=== PATIENT | female | born 1945 | race Caucasian/White ===

== ENCOUNTER 2019-12-08 06:02 | Day surgery (SDC) | payer MEDICARE, BC ==
[2019-12-08] MEDS ORDERED: Lactated Ringers 1,000 ML IV SCH (06:30)
[2019-12-08] MEDS ORDERED: Povidone-Iodine 10% Soln 118.25 ML Bottle ONE ×2 (06:36→08:22)
[2019-12-08] MEDS: Nozin Nasal Sanitizer NASBOTH SCH ×2 (07:01→20:11)
[2019-12-08] MEDS ORDERED: Propofol 200 MG/20 ML SDV ONE (07:24)
[2019-12-08] MEDS ORDERED: fentaNYL 100 MCG/2 ML SDV ONE (07:24)
[2019-12-08] MEDS ORDERED: Midazolam 1 MG/ML 2 ML SDV ONE (07:25)
[2019-12-08] MEDS ORDERED: Sodium Chloride 0.9% 10 ML ONE (08:08)
[2019-12-08] MEDS: ceFAZolin 2 GM in Premix Bag 1 BAG IV ONE ×2 (08:28→14:25)
[2019-12-08] MEDS ORDERED: Lactated Ringers 1,000 ML ONE (08:38)
[2019-12-08] MEDS ORDERED: Morphine 2 MG/ML SYRINGE IVPUSH PRN (09:04)
[2019-12-08] MEDS ORDERED: Ondansetron 4 MG/2 ML SDV IVPUSH PRN (09:04)
[2019-12-08] MEDS ORDERED: Acetaminophen 325 MG Tab PO PRN (09:04)
[2019-12-08] MEDS ORDERED: ceFAZolin 1 GM in Sodium Chloride 0.9% 50 ML IV SCH (09:15)
[2019-12-08] MEDS: Sodium Chloride 0.9% 1,000 ML IV SCH ×2 (10:35→19:03)
--- NOTE | 2019-12-08 11:29 | CR ---
Knee 1V or 2V Lt CLINICAL HISTORY: Arthroplasty FINDINGS: Patient is status post medial hemiarthroplasty. Components appear well seated. There is intra-articular and subcutaneous venous air. IMPRESSION: Status post recent medial hemiarthroplasty
[2019-12-08] MEDS: Acetaminophen/oxyCODONE 325-5 MG Tab PO PRN ×2 (11:30→16:39)
[2019-12-08] MEDS: Ketorolac 30 MG/ML SDV IVPUSH SCH ×2 (12:36→20:09)
[2019-12-08] MEDS: Acetaminophen/HYDROcodone 325-5 MG Tab PO PRN (14:34)
[2019-12-08] MEDS ORDERED: Levothyroxine 112 MCG Tab PO ONE (15:00)
[2019-12-08] MEDS: ceFAZolin 1 GM in Premix Bag 1 BAG IV SCH (16:40)
[2019-12-08] MEDS ORDERED: Pantoprazole 40 MG Tab.CR PO ONE (17:00)
[2019-12-08] MEDS: Docusate Sodium 100 MG Cap PO SCH (20:11)
[2019-12-09] MEDS: ceFAZolin 1 GM in Premix Bag 1 BAG IV SCH (00:27)
[2019-12-09] MEDS: Sodium Chloride 0.9% 1,000 ML IV SCH (03:15)
[2019-12-09] MEDS: Acetaminophen/HYDROcodone 325-5 MG Tab PO PRN ×2 (03:16→08:24)
[2019-12-09] MEDS: Ketorolac 30 MG/ML SDV IVPUSH SCH ×2 (03:51→11:27)
[2019-12-09] MEDS ORDERED: Levothyroxine 50 MCG Tab PO SCH (07:30)
[2019-12-09] MEDS ORDERED: Pantoprazole 40 MG Tab.CR PO SCH (07:30)
[2019-12-09] MEDS: Nozin Nasal Sanitizer NASBOTH SCH (08:30)
[2019-12-09] MEDS: Docusate Sodium 100 MG Cap PO SCH (08:31)
[2019-12-09] MEDS ORDERED: Cetirizine 10 MG Tab PO SCH (09:00)
[2019-12-09] MEDS ORDERED: Non-Formulary Medication 1 Each (Rosuvastatin [Crestor] 20 MG) PO SCH (09:00)
[2019-12-09] MEDS ORDERED: Rosuvastatin 10 MG Tab PO SCH (09:00)
[2019-12-09] MEDS ORDERED: Non-Formulary Medication 1 Each (Omeprazole [Omeprazole] 40 MG) PO SCH (09:00)
[2019-12-10] MEDS ORDERED: Levothyroxine 112 MCG Tab PO SCH (07:30)
--- NOTE | 2019-12-22 17:44 | OR ---
DATE OF PROCEDURE: 12/08/2019 SURGEON: Alan Rivera MD PREOPERATIVE DIAGNOSIS: Osteoarthritis, left knee. POSTOPERATIVE DIAGNOSIS: Osteoarthritis, left knee. PROCEDURE: Left medial unicompartmental arthroplasty using [employer] ZUK components, size C femur, 1 tibia, and 8 mm polyethylene. ANESTHESIA: Spinal with sedation. INDICATIONS: Corazon is a very pleasant 73-year-old female with a history of progressive pain in her left knee. Examination and imaging are consistent with osteoarthritis of the left knee with medial joint space collapse. She now presents for left medial unicompartmental arthroplasty. Risks, benefits, potential complications of the procedure were discussed. DESCRIPTION OF PROCEDURE: After adequate anesthesia was obtained, the patient placed supine with a tourniquet about the left upper thigh. Left leg was prepped and draped in a sterile fashion. Leg was exsanguinated and tourniquet inflated to 300 mmHg pressure. Incision was made just medial of midline over the patella and carried down through the subcutaneous tissues just below the joint line. Medial parapatellar arthrotomy was performed up to the level of the VMO insertion. The anterior horn of the medial meniscus was excised. The joint was evaluated with articular cartilage loss in the medial femoral condyle. Articular cartilage of the trochlear groove was intact and very minimal softening of the articular cartilage of the patella was noted with no defects. The anterior lip of the tibial plateau was removed with an oscillating saw. The leg was placed in extension and the extramedullary alignment jig was then placed. This was aligned and secured. Distal femur was then cut with an oscillating saw. This portion of the guide was removed and the knee was flexed. The proximal tibia was resected with a combination of reciprocating and oscillating saws. The guide was removed. Proximal tibia was excised along with the remaining medial meniscus. The femur was then sized to a C component. C cutting jig was secured to the distal femur. Peg holes were drilled and the remaining cuts were then completed. The jig was removed. The tibia was then sized to a #1 Component. #1 trial base plate was tapped into position, secured with a pin, and peg holes were drilled. The trial femur was placed and an 8 mm insert was then trialed which provided 2 mm of play in both flexion and extension. The trials were then removed. The knee was thoroughly irrigated with the pulse lavage. The bone surfaces were dried. Components were cemented in place and excess cement was removed. The knee was held in full extension with an 8 mm trial as the cement cured. Flexion and extension gaps were again measured with approximately 2 mm in both. The 8 trial was removed. The knee was irrigated and the final polyethylene was snapped into position. The knee was irrigated once again with a dilute Betadine solution followed by normal saline. The arthrotomy was then closed with #2 Ethibond in a running fashion. The skin was closed with 2-0 Vicryl and a running 3-0 Monocryl on the skin. Steri-Strips were applied. Light compressive dressing was then placed. The patient tolerated procedure well and no complications. Taken from the operating room in stable condition. Alan Rivera MD /[id number]
== END 2019-12-09 14:10 | disposition home or self-care (01) ==
LOC: JP.SDS 06:02 → JP.MS 10:10 → JP.SDS 12-09 14:10
PROVIDERS: ATTEND Specialist
DX: M17.12 Unilateral primary osteoarthritis, left knee (principal); J44.9 Chronic obstructive pulmonary disease, unspecified; E03.9 Hypothyroidism, unspecified; E11.9 Type 2 diabetes mellitus without complications; M81.0 Age-related osteoporosis without current pathological fracture; Z88.2 Allergy status to sulfonamides; Z88.0 Allergy status to penicillin
CPT/HCPCS: 27446; 73560; 97110; 97116; 97161; 97530; 97535; A9270; C1713; C1776; J0690; J1885; J2250; J2405; J2704; J3010; J7030; J7120

== ENCOUNTER 2021-09-11 08:06 | Emergency (ER) | payer MEDICARE, BC | END 2021-09-11 08:54 | disposition home or self-care (01) | LOC: JP.ED 08:06 | DX: J01.11 Acute recurrent frontal sinusitis (principal); E78.00 Pure hypercholesterolemia, unspecified; I10 Essential (primary) hypertension; E03.9 Hypothyroidism, unspecified; K21.9 Gastro-esophageal reflux disease without esophagitis; Z88.0 Allergy status to penicillin; Z88.2 Allergy status to sulfonamides; Z79.01 Long term (current) use of anticoagulants; Z79.899 Other long term (current) drug therapy | CPT/HCPCS: 99281; 99283 ==

== ENCOUNTER 2024-08-05 05:45 | Emergency (ER) | payer MEDICARE, BC | END 2024-08-05 06:32 | disposition home or self-care (01) | LOC: JP.ED 05:45 | DX: S30.861A Insect bite (nonvenomous) of abdominal wall, initial encounter (principal); I10 Essential (primary) hypertension; E78.00 Pure hypercholesterolemia, unspecified; E03.9 Hypothyroidism, unspecified; Z88.0 Allergy status to penicillin; Z88.2 Allergy status to sulfonamides; Z88.8 Allergy status to other drugs, medicaments and biological substances; Z79.01 Long term (current) use of anticoagulants; Z79.890 Hormone replacement therapy; Z79.899 Other long term (current) drug therapy; W57.XXXA Bitten or stung by nonvenomous insect and other nonvenomous arthropods, initial encounter | CPT/HCPCS: 99281 ==